=== PATIENT | female | born 2000 | race Caucasian/White ===

== ENCOUNTER 2023-08-18 08:27 | Outpatient (AMB) | payer OTHER, SELFPAY ==
--- NOTE | 2023-08-18 08:31 | MHC.PC.OV ---
Vital Signs 08/18/23 08:33 Height 5 ft 8 in Weight 126 lb BMI 19.2 BP 120/76 Blood Pressure Location Lt brachial Position Sitting Pulse 77 Pulse Source Pulse Oximeter Pulse Oximetry (%) 99 Oxygen Delivery Method Room Air Intake Visit Reasons: Physical Exam Intake Note: patient is here today for her PE Is last menstrual period known: Yes Last menstrual period: 07/31/23 Post menopausal: No Patient : No Allergies No Known Allergies Allergy (Verified 08/18/23 08:58) Medication List - Last Reconciled 08/18/23 by Riri Sharif MD cetirizine (Zyrtec) 10 mg PO DAILY PRN ciclopirox 1% 10 mL topical 2XW 4 weeks norethindrone-e.estradiol-iron 1.5 mg-30 mcg (21)/75 mg (7) (Jackie Fe 1.5/30 (28)) 1 tab PO DAILY Tobacco use date assessed: 08/18/23 Dental Screening Dental Screen Date: 08/18/23 Did you have a dental visit in the last 12 months?: Yes Did you have a dental problem in the last 6 months where you did not have access to dental care?: No Was dental information given to patient?: Patient has dentist HPI Physical Exam HPI Details 23-year-old lady here today for physical exam. She has been having a runny nose, nasal congestion postnasal drainage now for at least 2 weeks, seems to be getting better, with taking Zyrtec in the morning. Gets occasional wheezing, usually triggered by runny nose and postnasal drainage. Requesting a refill on her albuterol which she has had in the past, as well as benzonatate Perles and wants to be placed back on montelukast which she has taken in the past for her allergies. She has scalp psoriasis, sees dermatology, currently on Ciclopirox 1%, and is also being treated for her acne. She sees her OBGYN at [facility], had her Pap smear done 04/27/2023 which showed presence of atypical squamous cells of undetermined significance, negative for HPV. She is currently on control, but is thinking of getting off it and switching to an IUD. Patient states she will discuss this with her OBGYN her next appointment She has history of migraines, better when she was on control but had a recent migraine attack couple weeks ago where in she has had severe headaches accompanied by visual field cuts. She took her cousin sumatriptan which provided relief. Would like a referral to see a neurologist for her migraine. [facility] Medical History (Updated 08/18/23 @ 09:41 by Riri Sharif MD) Heartburn Migraine headache with aura Reactive airway disease Pruritic dermatosis of scalp Dysmenorrhea Seasonal allergies Surgical History [place] teeth extracted Family History Maternal Grandfather Colon cancer Paternal Grandfather Diabetes mellitus Social History Housing: House Patient Tobacco Use Status: Never used Tobacco e-Cigarette/Vaping Use: Never Used service: No Current occupational status: employed (Works remote, from home) Cognitive needs: No Hearing needs: No Vision needs: No Female Reproductive History Menstrual Age of Menarche: 12 Date of last menstrual period: 07/31/23 Date of last pap smear: 04/27/23 Other: Goes to [facility] for her routine Pap and pelvic exam Questionnaire PHQ-9 Over the last 2 weeks, how often have you been bothered by any of the following problems? 1. Little interest or pleasure in doing things: not at all 2. Feeling down, depressed, or hopeless: not at all 3. Trouble falling or staying asleep, or sleeping too much: not at all 4. Feeling tired or having little energy: not at all 5. Poor appetite or overeating: not at all 6. Feeling bad about yourself - or that you are a failure or have let yourself or your family down: not at all 7. Trouble concentrating on things, such as reading the newspaper or watching television: not at all 8. Moving or speaking so slowly that other people could have noticed. Or the opposite - being so fidgety or restless that you have been moving around a lot more than usual: not at all 9. Thoughts that you would be better off or of hurting yourself in some way: not at all Total score: 0 Depression Screening Interpretation: Negative Depression Screening Done: Yes 28429 - PHQ-9 Billing: Yes Source: Developed by Drs. Krishan Villalba, Nicolle Guadarrama, Duy Mejía and colleagues, with an educational lucy from [employer]. Thrive Questionnaire Date Thrive assessed: 08/18/23 I am a: Patient What is your living situation today?: I have a steady place to live Within the past 12 months, did the food you bought not last and you didn't have the money to get more?: Never true Within the past 12 months, did you worry whether your food would run out before you got money to buy more?: Never true Do you have trouble paying for medicines?: No Do you have trouble getting transportation to medical appointments?: No Do you have trouble paying your heating and electricity bill?: No Do you have trouble taking care of your child, family member or friend?: No Do you have trouble with day-to-day activities such as bathing, preparing meals, shopping, managing finances, etc.?: No Are you currently unemployed and looking for a job?: No Are you interested in more education?: No Please select the resources that you would like help with: None AUDIT C Alcohol Use Questionnaire (AUDIT-C) 1. How often do you have a drink containing alcohol?: Monthly or less Total Score: 1 Score Reviewed/Action Taken: Yes GALE-7 AMB Questionnaire GALE-7 Date GALE - 7 assessed: 08/18/23 Feeling nervous, anxious, or on edge: 0 = Not at all Not being able to stop or control worryin = Not at all Worrying too much about different things: 0 = Not at all Trouble relaxin = Not at all Being so restless that it is hard to sit still: 0 = Not at all Becoming easily annoyed or irritable: 0 = Not at all Feeling afraid as if something awful might happen: 0 = Not at all Total GALE-7 score (0-4 normal; 5-9 mild; 10-14 moderate; 15-21 severe): 0 Source: Developed by Drs. Krishan Villalba, Duy aGrrido and colleagues, with an educational lucy from [employer]. GALE-7 Assessment Billing GALE-7 Assessment Tool: GALE-7 Assessment 09718 Review of Systems Const Denies body aches, Denies fatigue, Denies fever(s), Reports headache(s) and Denies weakness Eyes Denies change in vision, Denies eye discharge and Denies itchy eyes ENT Details: Has been having some nasal congestion, runny nose and postnasal drainage, improving now with Zyrtec has tested negative 4x for COVID Denies dizziness, Reports headache(s), Reports nasal congestion, Denies nasal discharge, Denies tinnitus, Denies sinus pain, Denies sinus pressure and Denies sore throat Card Denies chest pain, Denies lightheadedness, Denies palpitations, Denies dyspnea and Denies dyspnea on exertion Resp Denies chest congestion, Denies excessive phlegm production, Denies dyspnea, Denies dyspnea on exertion and Reports wheezing (Occasional) GI Denies abdominal pain, Denies change in bowel habits, Reports dyspepsia and Reports heartburn (Occasional when eating spicy food, takes Prilosec [id number] as neede) Denies hematuria, Denies urinary frequency, Denies genital pruritis, Denies nipple discharge, Denies dysuria, Denies pelvic pain, Denies urinary incontinence, Denies urinary hesitancy, Denies urinary urgency, Denies vaginal discharge, Denies vaginal dryness, Denies vaginal odor and Denies vaginal pruritus Musc Reports no additional complaints Skin/Breast Denies breast pain, Denies breast mass, Denies lesions, Denies nipple discharge and Denies rash Neuro Reports as per HPI, Denies dizziness, Reports headache(s) and Denies weakness Psych Reports no additional complaints Endo Denies fatigue, Denies polydipsia, Denies polyuria and Denies palpitations Sammy/Lymph Denies easy bleeding and Denies easy bruising Aller/Immun Denies itchy eyes, Reports seasonal rhinorrhea and Reports wheezing (Occasional) Physical exam (Primary Care) Vital Signs: Last Vital Signs Pulse 77 08/18/23 08:33 BP 120/76 08/18/23 08:33 Pulse Ox 99 08/18/23 08:33 Oxygen Delivery Method Room Air 08/18/23 08:33 BMI result Body Mass Index 19.2 Tobacco/Smoking Status: Tobacco use Status Tobacco use date assessed 08/18/23 08/18/23 08:38 Patient Tobacco Use Status Never used Tobacco 08/18/23 08:38 e-Cigarette/Vaping Use Never Used 08/18/23 08:38 Depression Screening Interpretation: Negative Thrive Assessment: Date of Thrive Assessment Date Thrive assessed 04/15/22 08/18/23 08:38 Const General: no acute distress and alert Nutritional Appearance: average body habitus Orientation/consciousness: patient oriented x3 HENMT Head: Yes normocephalic and Yes atraumatic Ears: external ears normal, TM's normal bilaterally and EAC's normal General nose exam: Normal external nose present and Abnormal mucous membranes and turbinates present boggy and pale Face and sinus: Yes face symmetric and No sinus tenderness Mouth: Normal oral and palatal mucosa present, tongue normal, oropharynx normal and moist mucous membranes Eyes General: appearance normal, both eyes and all related structures Eyelids: Yes eyelids normal Conjunctivae: conjunctivae normal Sclerae: sclerae normal Pupils: Equal, round and reactive pupils present EOM: EOMs intact bilaterally Neck Neck: Yes full ROM, Yes no lymphadenopathy and Yes supple Thyroid: Thyroid normal Chest Chest palpation & inspection: normal inspection of the chest Breast/axilla inspection: normal inspection of the breasts Breast/axilla palpation: normal palpation of the breasts Resp Effort & Inspection: normal respiratory effort and able to speak in complete sentences Auscultation: clear to auscultation bilaterally Cardio Rate: regular rate Rhythm: regular rhythm Heart sounds: S1 normal heart sound present and S2 normal heart sound present GI Inspection: Yes normal to inspection Palpation (GI): Soft to palpation, nontender, no guarding and no masses Auscultation: normal bowel sounds General: Yes no CVA tenderness and Yes deferred (Goes to [facility] for routine Pap and pelvic exam) Back/Spine/Pelvis Back: no CVA tenderness and No back tenderness Skin General skin exam: no rashes or lesions noted Neuro General: patient oriented x3, gait normal, moves all extremities, Normal light touch and pain sensation, no focal motor deficits and CN's II-XI intact bilaterally Cranial nerves: Yes Equal, round and reactive pupils present Cognition (Neuro): normal cognition Gait exam (Neuro): Normal gait present Motor exam (neuro): 5/5 motor strength present throughout Extrem General: Yes normal to inspection, Yes full ROM, Yes no joint enlargement, Yes no pedal edema and Yes normal gait Psych Appearance: grossly normal and well kempt Mental Status: mental status grossly normal Speech and movement: Normal speech and movement present Affect: normal affect Attitude: cooperative Thought process: Normal thought process present Thought content: Normal thought content present Assessment and Plan Assessment & Plan (1) Annual visit for general adult medical examination with abnormal findings: Code(s): Z00. - Encounter for general adult medical examination with abnormal findings Plan: Will check appropriate labs. Recommended dental visit every 6 months and regular eye exams, at least every 2 years. Take adequate calcium in diet and vitamin-D 3 at 2000 IU per cap once a day, in addition to weight-bearing exercises to help maintain good muscle tone and weight control. Instructed to do self-breast exam, and recommended to get yearly mammogram, starting at age 40. Patient will obtain vaccination records from [place] , advised to get COVID booster 1 and a flu shot. Goes to [facility] for her routine Pap and pelvic exam, currently on control, thinking of getting of control and switching to IUD, will discuss this with her OB (2) Reactive airway disease: Code(s): J45.909 - Unspecified asthma, uncomplicated Plan: Prescription given for albuterol inhaler to use as needed for episodes of wheezing and bronchospasm (3) Migraine headache with aura: Code(s): G43.109 - Migraine with aura, not intractable, without status migrainosus Plan: Prescription sent for sumatriptan to take as directed, referred to Dr. Pennington for further evaluation for migraine headache with or (4) Pruritic dermatosis of scalp: Code(s): L29.8 - Other pruritus Plan: Followed by dermatology, currently on ciclopirox2 % (5) Seasonal allergies: Code(s): J30.2 - Other seasonal allergic rhinitis Plan: Continue Zyrtec, prescription sent for montelukast 10 mg taken once a day. Prescription also sent for benzonatate Perles to take as needed for cough and albuterol inhaler as needed for episodes of bronchospasm and wheezing (6) Heartburn: Code(s): R12 - Heartburn Plan: Advised to stop Prilosec, prescription sent for famotidine 40 mg per tablet to take once a day as needed, usually take it at least an hour prior to eating food triggers for heartburn Orders: Orders Alanine Aminotransferase Today Z00.01 - Encounter for general adult medical examination with abnormal findings Aspartate Amino Transferase Today Z00.01 - Encounter for general adult medical examination with abnormal findings Lipid Panel Today Z00. - Encounter for general adult medical examination with abnormal findings Glucose Fasting Today Z00.01 - Encounter for general adult medical examination with abnormal findings Referrals Neurology Referral G43.109 - Migraine with aura, not intractable, without status migrainosus Medications: New albuterol sulfate 90 mcg/actuation 2 puffs inhalation QID PRN 8.5 grams 1RF shortness of breath or wheezing J45.909 - Unspecified asthma, uncomplicated montelukast 10 mg PO DAILY 90 tabs 3RF sumatriptan succinate take 1 tab at onset of headache; if no relief, may repeat 1 tab after at least 2 hrs; max = 2 tabs/24 hrs PO 10 tabs 0RF benzonatate 100 mg PO BID PRN 20 caps 1RF cough famotidine 40 mg PO DAILY PRN 90 tabs 0RF For heartburn since Refilled norethindrone-e.estradiol-iron 1.5 mg-30 mcg (21)/75 mg (7) (Jackie Fe 1.5/30 (28)) 1 tab PO DAILY 84 tabs 1RF Coding Level of Care Code Est Pt Prev Care 18-39y(81138) Diagnoses Annual visit for general adult medical examination with abnormal findings Z00. Reactive airway disease J45.909 Migraine headache with aura G43.109 Pruritic dermatosis of scalp L29.8 Seasonal allergies J30.2 Heartburn R12 Additional Codes GALE-7 Assessment Billing - GALE-7 Assessment Tool: GALE-7 Assessment [id number] ([id number])
[2023-08-18 08:33] VITALS: BP 120/76; PULSE 77; O2SAT 99; BMI 19.2
== END 2023-08-18 09:22 | disposition home or self-care (01) ==
PROVIDERS: PCP Internal Medicine; Visit Provider Internal Medicine
DX: Z00.01 Encounter for general adult medical examination with abnormal findings (principal); J45.909 Unspecified asthma, uncomplicated; G43.109 Migraine with aura, not intractable, without status migrainosus; L29.8 Other pruritus; J30.2 Other seasonal allergic rhinitis; R12 Heartburn
CPT/HCPCS: 99395

== ENCOUNTER 2023-08-18 09:31 | Outpatient (REF) | payer OTHER, SELFPAY | END 2023-08-18 09:32 | disposition home or self-care (01) | LOC: HO.HMGCLDS 09:31 | PROVIDERS: PCP Internal Medicine; Visit Provider Internal Medicine | DX: Z00.01 Encounter for general adult medical examination with abnormal findings (principal) | CPT/HCPCS: 36415; 80061; 82947; 84450; 84460 ==

== ENCOUNTER 2024-01-15 08:02 | Outpatient (AMB) | payer OTHER, SELFPAY ==
--- NOTE | 2024-01-15 08:07 | A.OFFVIS_ITS ---
Intake Vital Signs 01/15/24 08:08 Height 5 ft 8 in Weight 130 lb BMI 19.8 BP 112/62 Blood Pressure Location Rt brachial Position Sitting Respiration 16 Pulse 65 Pulse Source Pulse Oximeter Pulse Oximetry (%) 100 Intake Visit Reasons: INP Migraine w/Aura - LVM w/ address Intake Note: Pt presents for new pt evaluation for migraines. Pt reports she's been having them around her menses, but have become worse over the years. She reports aura of the right eye and photosensitivity. She reports taking Sumatriptan and this seems to help. Physician Office Secretary Required: No Allergies No Known Allergies Allergy (Verified 01/15/24 08:08) Medication List - Last Reconciled 01/15/24 by KATHE Anaya albuterol sulfate 90 mcg/actuation 2 puffs inhalation QID PRN cetirizine (Zyrtec) 10 mg PO DAILY PRN ciclopirox 1% 10 mL topical 2XW 4 weeks famotidine 40 mg PO DAILY PRN montelukast 10 mg PO DAILY norethindrone-e.estradiol-iron 1.5 mg-30 mcg (21)/75 mg (7) (Jackie Fe 1.5/30 (28)) 1 tab PO DAILY sumatriptan succinate take 1 tab at onset of headache; if no relief, may repeat 1 tab after at least 2 hrs; max = 2 tabs/24 hrs PO HPI HPI Comments History of Present Illness Details Right-handed 23-yr-old female presents for new pt evaluation of headache disorder, specifically question of worsening aura. Pt is accompanied by her father. Pt started having migraine w/ right sided visual at age 14, which was a/w the onset of her menses. The migraine attacks subsided after she started OCP for acne and menstrual regulation. She started having occasional attacks through high school and college. Her last migraine attack was in May 2023, which was her typical migraine w/ right sided aura, however about 40 minutes after onset of the right sided visual aura and taking a Sumatriptan 100mg tab, she developed whole body numbness and tingling (more in the arms and feet) x's 20 minutes. This was not a/w focal weakness. This was the 2nd time she took Sumatriptan, the 1st time she took it, she did not have any s/e's or paresthesias. Pt is also wondering if she may continue to take her current OCP (norethindrone 1.5 mg-ethinyl estradiol 30 mcg(21)/iron 75 mg(7) tablet), as her MANAGER BAR refused to continue to prescribe this to her d/t her migraine w/ aura s/s. Pt notes she did try a lower dose estrogen OCP before, but it was not as effective. She is hesitant to try progesterone only options such as IUD or Nexplanon. PMH is significant for: Asthma, seasonal allergies, depression- when younger. Pt also endorses: anxiety. Pertinent denials include: head injuries, neck/back injuries, usual constipation, CV dz, HTN, HLD, DM, thyroid d/o's, clotting d/o's. Headache questionnaire: Age/time of onset? 14 Preceding causes? None Previous work-up? No h/o head imaging. Typical headache characteristics: Prodrome symptoms? Unsure Aura? Right eye loss of vision- grayish blurry vision, 10-15 minutes. Pain intensity? Severe Location, quality, characteristics? Holocranial pressure stabbing, but mainly right sided. Associated symptoms? photophobia, phonophobia, osmophobia, nausea, vomiting- when younger, difficulty concentrating, tiredness, activity intolerance. Focal weakness, Parethesias, Autonomic s/s? none prior to the attack in May 2023. Postdrome? None Triggers? poor sleep, alcohol use, late/skipping meals Any positional, valsalva, exertional, sexual activity triggers? Denies Menstrual triggers? Can have Time of day? No specific time of day. Duration and Frequency? hours to 1/2 day. May 2023 last migraine attack w/ aura. Rare regular right sided SEO not a/w aura or photo/phonophobia or N/V. Current acute medication use/interventions: Sumatriptan 100mg prn. Advil prn. Previous acute medication use: None other Current preventative medication use: None Previous preventative medication use: None Non-pharmacological interventions: Ice caps, rest, tries to avoid triggers- tries not to skip meals, etc. Life style factors: Sleeps: Sleeps 8 hrs per night- sleeps well. Substance use: 1 cup of coffee qam. 2 glasses of wine 4 nights per week. 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 Family planning? on OCP Family history of migraine or other headache disorder? My grandmother had migraine and strokes- was a smoker. [facility] Medical History (Updated 01/15/24 @ 20:25 by KATHE Anaya) Heartburn Migraine headache with aura Reactive airway disease Pruritic dermatosis of scalp Dysmenorrhea Seasonal allergies Surgical History [place] teeth extracted Family History Maternal Grandfather Colon cancer Paternal Grandfather Diabetes mellitus Social History Housing: House Patient Tobacco Use Status: Never used Tobacco e-Cigarette/Vaping Use: Never Used service: No Current occupational status: employed (Works remote, from home) Cognitive needs: No Hearing needs: No Vision needs: No Female Reproductive History Menstrual Age of Menarche: 12 Physical Exam Vital Signs: Last Vital Signs Pulse 65 01/15/24 08:08 Resp 16 01/15/24 08:08 BP 112/62 01/15/24 08:08 Pulse Ox 100 01/15/24 08:08 BMI result Body Mass Index 19.8 Const Orientation/consciousness: patient oriented x3 HEENT Other: No palpable scalp tenderness. Head: Yes normocephalic Resp Effort & Inspection: normal respiratory effort and able to speak in complete sentences Neuro General: patient oriented x3 Cranial nerves: Yes CN's II-XII intact bilaterally Cognition (Neuro): normal cognition Gait exam (Neuro): Normal gait present Motor exam (neuro): 5/5 motor strength present throughout Deep tendon reflexes (DTR's): Right triceps reflex intensity grade: 2+, Left triceps reflex intensity grade: 2+, Rt Biceps (C5, C6): 2+, Left biceps reflex intensity grade: 2+, Right brachioradialis reflex intensity grade: 2+, Left brachioradialis reflex intensity grade: 2+, Right patellar reflex intensity grade: 2+ and Left patellar reflex intensity grade: 2+ Coordination: [id number] test normal, tandem gait normal and Romberg test negative Pupils: Normal pupillary reactivity/response: bilateral Psych Appearance: grossly normal Mental Status: mental status grossly normal Speech and movement: Normal speech and movement present Affect: normal affect Attitude: cooperative Thought process: Normal thought process present Assessment & Plan Assessment & Plan (1) Migraine headache with aura: Code(s): G43.109 - Migraine with aura, not intractable, without status migrainosus (2) Visual aura: Code(s): H53.9 - Unspecified visual disturbance (3) Paresthesias: Comment: ? if whole body paresthesia in May 2023 was a triptan adverse effect versus aura versus intracranial process. Code(s): R20.2 - Paresthesia of skin Plan Pt is advised to undergo brain MRI w/wo contrast- to assess for secondary etiology of visual aura and episode of paresthesias. Discussed use of OCP in setting of migraine w/ aura. Discussed that migraine w/ aura in women is a/w with a small but significant risk of stroke. OCP, especially those with higher does of estrogen, have been a/w an increased risk in stroke as well. Thus, there is concern that for women w/ migraine w/ aura there may be further increased risk for stroke, especially in the setting of frequnt migraine w/ aura attacks and other CV risk factors, age > 35, smoking, etc. Discussed that further study is still needed to better undertsand if more modern lower dosed estrogen OCP does confer lower stroke risk compared to higher dosed OCP. Pt is a healthy 23 yo female with low frequency of migraine w/ aura attacks, w/o known CV risk factors, tobacco use, or strong family h/o stroke. Pt verbalized understanding, and prefers to continue her current low dose OCP at this time. Advised that this decision may need to be revisited over time as her health status changes. For overall headache management: Continue to optimize good self-care, including but not limited to maintaining a healthy diet, adequate fluid intake, adequate sleep, and engaging in regular physical activity. Track headaches For acute headache treatment: Discussed importance of taking acute medications at the first sign of headache, however stressed importance of avoiding acute medication overuse (especially w ith combined headache medications). Continue Sumatriptan 100mg prn, MR x's 1 in 2hrs, MDD 2 tabs. May adjunct w/ Advil. Reviewed potential adverse effects of triptans, including but not limited to na usea, fatigue, chest tightness/tingling (usually passes within a few minutes), medication overuse headaches. Previous acute migraine medication trials: None other. Acute migraine medication contraindications: None at this time, For headache prevention medication: Not indicated at this time Previous migraine prevention medication trials: None Migraine prevention medication contraindications: Caution w/ BBs d/t h/o asthma. Pt to follow-up in 6 months or sooner prn. Orders: Orders MR head/brain wo/w con Today G43.109 - Migraine with aura, not intractable, without status migrainosus, H53.9 - Unspecified visual disturbance, R20.2 - Paresthesia of skin Medications: Refilled sumatriptan succinate take 1 tab at onset of headache; if no relief, may repeat 1 tab after at least 2 hrs; max = 2 tabs/24 hrs PO 10 tabs 3RF Coding Level of Care Code New Pt Level 4 (68504) Diagnoses Migraine headache with aura G43.109 Visual aura H53.9 Paresthesias R20.2
[2024-01-15 08:08] VITALS: BP 112/62; PULSE 65; RESP 16; O2SAT 100; BMI 19.8
== END 2024-01-15 09:12 | disposition home or self-care (01) ==
PROVIDERS: PCP Internal Medicine; Visit Provider Nurse Practitioner Family
DX: G43.109 Migraine with aura, not intractable, without status migrainosus (principal); H53.9 Unspecified visual disturbance; R20.2 Paresthesia of skin
CPT/HCPCS: 99204

== ENCOUNTER → 2024-01-15 08:02 | Outpatient (BNVA) | payer OTHER, SELFPAY | PROVIDERS: PCP Internal Medicine; Visit Provider Nurse Practitioner Family ==

== ENCOUNTER 2024-02-08 15:00 | Outpatient (REF) | payer OTHER, SELFPAY ==
--- NOTE | ~2024-02-08 | MR_ITS ---
EXAMINATION: MR BRAIN WITHOUT AND WITH CONTRAST CLINICAL INFORMATION: Paresthesia of skin COMPARISON: None TECHNIQUE: Multiplanar multisequence MR imaging of the brain was obtained without and following the administration of 6 mL Gadavist intravenous contrast. FINDINGS: There is no acute infarct on diffusion-weighted imaging. There is no intracranial hemorrhage on iron-sensitive imaging. No extra-axial collection or mass effect/herniation. Normal parenchymal signal characteristics. No hydrocephalus. The ventricles are normal in morphology and size. No abnormal parenchymal or extra-axial enhancement. The major flow voids at the skull base are preserved. The midline structures are normal. The cerebellar tonsils are normally positioned. The craniocervical junction is normal. Marrow signal is within normal limits. The visualized soft tissues are without significant abnormality. No signal abnormality within the paranasal sinuses or within the mastoid air cells. MR/MR head/brain wo/w con IMPRESSION: Unremarkable contrast enhanced MRI of the brain.
== END 2024-02-08 15:01 | disposition home or self-care (01) ==
LOC: HO.MRI 15:00
PROVIDERS: PCP Internal Medicine; Visit Provider Nurse Practitioner Family
DX: R20.2 Paresthesia of skin (principal); H53.9 Unspecified visual disturbance; G43.109 Migraine with aura, not intractable, without status migrainosus
CPT/HCPCS: 70553